=== PATIENT | female | born 1960 | race African-American/Black ===

== ENCOUNTER 2019-03-31 17:09 | Inpatient (IN) | payer MEDICAID ==
[~2019-03-31] VITALS: Ht 167.6 cm; Wt 77.1 kg
[~2019-03-31 17:09] MED LIST: ALBU0.5N2 IN; ALPR2TAB2 PO; CLON0.1T PO; FURO1TAB33 PO; HYDR-4833 PO; INSLANTI SC; IPRASOL39 NEB; METO-169 PO; MORP30TA PO; NIFE90TA30 PO; NITR0.2D3 TD; NITR0.4S29 SL; POT8T PO; PRE1T PO; QUET50TA PO; RANI-226 PO; SIMV40TA96 PO
[2019-03-31 17:59] LABS: Basophils # (auto) 0 uL; Eosinophils # (auto) 0.1 uL; Eosinophils % (auto) 2.5 % (0.0-7.0); Hematocrit 44.8 % (36.0-46.0); Lymphocytes # (auto) 1.6 uL; Lymphocytes % (auto) 32.9 % (10.0-50.0); Mean Corpuscular Hemoglobin 29.9 pg (28.0-32.0); Mean Corpuscular Hgb Conc. 33.6 g/dL (32.0-36.0); Mean Corpuscular Volume 88.9 fL (80.0-100.0); Monocytes # (auto) 0.4 uL; Monocytes % (auto) 7.9 % (0.0-12.0); Neutrophils # (auto) 2.7 uL; Neutrophils % (auto) 55.7 % (37.0-80.0); Nucleated Red Blood Cells % 0.1 %; Platelet Count (auto) 316 10^3/uL (140-450); Red Blood Cells 5.04 10^6/uL (4.0-5.20); Red Cell Distribution Width 13.4 % (11.8-14.3); White Blood Cell 4.8 10^3/uL (4.4-10.8)
[2019-03-31] MEDS ORDERED: MORPHINE SULFATE 4 MG/ML SYR/VIAL IV ONE ×2 (18:00→20:45)
[2019-03-31] MEDS ORDERED: ONDANSETRON HCL 4 MG/2 ML VIAL IV ONE ×2 (18:00→20:45)
[2019-03-31 18:17] LABS: Albumin 3.7 g/dL (3.4-5.0); Anion Gap 9 (5-15); Blood Urea Nitrogen 16 mg/dL (7-18); Calcium 9.3 mg/dL (8.5-10.1); Carbon Dioxide 23 mmol/L (21-32); Chloride 108 mmol/L (98-107); Glucose 87 mg/dL (74-106); Sodium 140 mmol/L (136-145)
[2019-03-31 18:22] LABS: Alanine Aminotransferase 30 U/L (13-56); Alkaline Phosphatase 79 U/L (45-117); Aspartate Aminotransferase 24 U/L (15-37); Bilirubin, Total 0.4 mg/dL (0.2-1.0); GFR African American 94 mL/min; GFR Non-African American 78 mL/min; Total Protein 7.8 g/dL (6.4-8.2)
[2019-03-31] MEDS ORDERED: cloNIDine HCL 0.1 MG TAB PO ONE (19:15)
[2019-03-31] MEDS ORDERED: GABAPENTIN 300 MG CAP PO ONE (20:45)
[2019-03-31] MEDS ORDERED: ONDANSETRON HCL 4 MG/2 ML VIAL IV PRN ×2 (21:45)
[2019-03-31] MEDS ORDERED: ALBUTEROL SULF 2.5 MG/0.5ML(0.5%) NEB SOLN NEB ONE (21:45)
[2019-03-31] MEDS ORDERED: PROMETHAZINE HCL 25 MG/ML 1ML IV ONE (21:45)
[2019-03-31] MEDS ORDERED: IPRATROPIUM BROM 0.5 MG/2.5ML INH SOL NEB ONE (21:45)
[2019-03-31] MEDS ORDERED: MORPHINE SULF INJ 2 MG/ML SYRINGE 1ML IV PRN (21:45)
[2019-03-31] MEDS ORDERED: NITROGLYCERIN 0.4 MG SL TAB SL PRN (21:45)
[2019-03-31] MEDS ORDERED: ACETAMINOPHEN 500 MG TAB PO PRN (21:45)
[2019-03-31] MEDS ORDERED: TEMAZEPAM 15 MG CAP PO PRN (22:00)
[2019-03-31] MEDS ORDERED: methylPREDNISolone SOD SUCC 125 MG/2 ML VL IV ONE (22:00)
[2019-03-31] MEDS ORDERED: cloNIDine HCL 0.1 MG TAB PO PRN (22:00)
[2019-03-31] MEDS ORDERED: LORazepam 0.5 MG TAB PO PRN (22:00)
[2019-03-31] MEDS: QUEtiapine FUMARATE 100 MG TAB PO SCH (22:28)
[2019-03-31] MEDS: ATORVASTATIN 20 MG TAB PO SCH (22:28)
--- NOTE | 2019-03-31 23:05 | NUR ---
Telemetry admit from ER [facility] admitted to Telemetry unit after SBAR received from [facility]. Patient oriented by MCKAYLA ROMERO, primary RN, to nurse call light and refused to listen to further instruction stating she had been here before. Bed in low position and locked Patient now on continuous telemetry monitoring, tele box #6 and telemetry reading on arrival to unit is sinus arrhythmia in 60s. Patient placed on bedside oxygen at 2 lpm per n/c, weighed by bedscale and encouraged to call if she needs something. 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 Impulsive in moving from stretcher to bed upon arrival; both software integration developer from ER and this RN cautioning her re. safety with movements. Nurse call light to pt's right side. Pt removes O2 at will. Pt asking RN if her phone is in here purse then will not allow RN to look within her purse. pt repeatedly asking about her phone and if she can eat. This RN repeatedly told pt ER personnel found phone and will bring it; also told she has had emesis and has DM so po will be limited at first. Pt insists her last meal was greater than 24 hours prev. Provided with sandwich and juice after this RN noted pt's serum gluc in ER was 87. Pt lieing flat of her back eating sandwich watching TV.
[2019-03-31 23:10] VITALS: BP 151/68
[2019-03-31 23:44] VITALS: BP 151/68
[2019-04-01] VITALS (7 sets, daily range): BP systolic 96–151; BP diastolic 67–80
[2019-04-01] MEDS: ALBUTEROL SULF 2.5 MG/0.5ML(0.5%) NEB SOLN NEB SCH ×4 (00:30→18:37)
[2019-04-01] MEDS: IPRATROPIUM BROM 0.5 MG/2.5ML INH SOL NEB SCH ×4 (00:30→18:37)
[2019-04-01 06:29] LABS: Basophils # (auto) 0 uL; Basophils % (auto) 0.2 % (0.0-2.0); Eosinophils # (auto) 0 uL; Eosinophils % (auto) 0.1 % (0.0-7.0); Hematocrit 43.1 % (36.0-46.0); Hemoglobin 14.4 g/dL (12.2-16.2); Lymphocytes # (auto) 0.5 uL; Lymphocytes % (auto) 10.7 % (10.0-50.0); Mean Corpuscular Hemoglobin 29.8 pg (28.0-32.0); Mean Corpuscular Hgb Conc. 33.4 g/dL (32.0-36.0); Mean Corpuscular Volume 89.2 fL (80.0-100.0); Monocytes # (auto) 0.1 uL; Monocytes % (auto) 1.5 % (0.0-12.0); Neutrophils % (auto) 87.5 % (37.0-80.0); Nucleated Red Blood Cells % 0.1 %; Platelet Count (auto) 279 10^3/uL (140-450); Red Blood Cells 4.83 10^6/uL (4.0-5.20); Red Cell Distribution Width 13.5 % (11.8-14.3); White Blood Cell 4.6 10^3/uL (4.4-10.8)
[2019-04-01 06:43] LABS: Calcium 9.2 mg/dL (8.5-10.1); Potassium 4.5 mmol/L (3.5-5.1)
[2019-04-01 06:45] LABS: BUN/Creatinine Ratio 21.9
--- NOTE | 2019-04-01 08:00 | NUR ---
Opening Shift Note Assumed care of patient, awake and alert. No S/S of distress/SOB 6/10 back and abdominal pain. Instructed on POC and to call for assist PRN, will continue to monitor for changes Q1hr and PRN.
[2019-04-01] MEDS ORDERED: ADENOSINE 62 MG in GIVE UN-DILUTED 0 ML IV STA (08:11)
[2019-04-01] MEDS ORDERED: PANTOPRAZOLE 40 MG TAB PO SCH (10:00)
[2019-04-01] MEDS: METOPROLOL SUCCINATE XL 50 MG TAB PO SCH (10:05)
[2019-04-01] MEDS: HYDROcodone-ACET 5/325MG TAB PO PRN ×3 (10:07→22:27)
[2019-04-01] MEDS: ASPirin-EC 81 mg tab PO SCH (10:07)
--- NOTE | 2019-04-01 10:30 | NUR ---
Hospitalist rounds Dr. Rivers at bedside, patient was advised. Patient complained of abdominal pain on and off and requested if it will be evaluated. Dr. Rivers spoke GI-Dr. Escobedo and recommended EGD for tomorrow. Patient made aware. Will placed on NPO after midnight tonight.
[2019-04-01 15:55] LABS: Cholesterol 225 mg/dL (< 200); Triglycerides 83 mg/dL (< 150)
[2019-04-01 15:57] LABS: HDL Cholesterol 78 mg/dL (40-59); LDL Cholesterol 137 mg/dL (< 100)
[2019-04-01] MEDS: SODIUM CHLORIDE 0.9% 1,000 ML IV SCH (18:04)
--- NOTE | 2019-04-01 18:30 | NUR ---
IV removal Both IV on right forearm and left wrist infiltrated. IV DC'd with clean sterile technique, catheter fully intact. Pressure dressing applied to site. Patient tolerated well.
[2019-04-01 18:55] LABS: INR < 0.93 (0.9-1.15); Partial Thromboplastin Time 26.6 sec (23.64-32.05)
--- NOTE | 2019-04-01 19:00 | NUR ---
Gave reports to shift superintendent caustic cresylate RN, patient requested for IV reinsertion later.
--- NOTE | 2019-04-01 19:52 | NUR ---
RECEIVED PATIENT FROM DAY SHIFT RN. PATIENT RESTING IN BED. NO S/S OF DISTRESS NOTED. C/O PAIN ON THE RIGHT SHOULDER @ 7/10 AFTER PAIN MEDICATION GIVEN EARLIER. REINFORCED PAIN MANAGEMENT SCHEDULE. WILL COME BACK FOR PAIN MEDICATION LATER WHEN THE TIME IS DUE AND PER PATIENT REQUESTS. HEAT PACK APPLIED ON THE SITE. REINFORCED PATIENT NPO AFTER MIDNIGHT FOR PROCEDURE TOMORROW. PATIENT VERBALIZED UNDERSTANDING. POC INSTRUCTED AND ENCOURAGED PATIENT TO CALL FOR [employer] SALES CONSULTANT IF NEEDED. BED IN LOWEST POSITION WITH SIDE RAILS UP X 2. CALL WHITMAN WITHIN REACH. CONTINUE TO MONITOR FOR CHANGES Q1H AND PRN.
--- NOTE | 2019-04-01 20:34 | NUR ---
IV insertion IV access obtained, via clean sterile technique by inserting [22] gauge catheter at [LFA] after [1] attempt(s). IV secured properly. No trauma to site. Patient tolerated well. NOTE: []
[2019-04-01] MEDS: QUEtiapine FUMARATE 100 MG TAB PO SCH (22:00)
[2019-04-01] MEDS: ATORVASTATIN 20 MG TAB PO SCH (22:25)
--- NOTE | 2019-04-01 22:25 | NUR ---
MEDICATED PATIENT FOR PAIN. CONTINUE TO MONITOR.
[2019-04-01] MEDS: PANTOPRAZOLE 40 MG TAB PO SCH (22:26)
[2019-04-02] VITALS (7 sets, daily range): BP systolic 119–162; BP diastolic 62–95
[2019-04-02] MEDS: ALBUTEROL SULF 2.5 MG/0.5ML(0.5%) NEB SOLN NEB SCH ×4 (00:36→18:19)
[2019-04-02] MEDS: IPRATROPIUM BROM 0.5 MG/2.5ML INH SOL NEB SCH ×4 (00:36→18:19)
--- NOTE | 2019-04-02 00:42 | NUR ---
REINFORCED NPO FROM NOW ON. FOOD AND WATER REMOVED FROM BEDSIDE. CONTINUE TO MONITOR.
[2019-04-02] MEDS: HYDROcodone-ACET 5/325MG TAB PO PRN ×4 (04:03→20:40)
--- NOTE | 2019-04-02 04:03 | NUR ---
MEDICATED PATIENT FOR PAIN. CONTINUE TO MONITOR.
--- NOTE | 2019-04-02 06:43 | NUR ---
RT PAGED FOR BREATHING TREATMENT.
[2019-04-02] MEDS: SODIUM CHLORIDE 0.9% 1,000 ML IV SCH ×2 (06:44→17:22)
--- NOTE | 2019-04-02 06:44 | NUR ---
PATIENT VERBALIZED UNDERSTANDING FOR NPO NOW. CONTINUE CARE.
[2019-04-02] MEDS: PANTOPRAZOLE 40 MG TAB PO SCH ×2 (09:48→21:43)
[2019-04-02] MEDS: METOPROLOL SUCCINATE XL 50 MG TAB PO SCH (09:48)
[2019-04-02] MEDS: ASPirin-EC 81 mg tab PO SCH (10:00)
[2019-04-02] MEDS ORDERED: SODIUM CHLORIDE LOCK 10 ML ONE (12:09)
[2019-04-02] MEDS ORDERED: FLUMAZENIL 0.1 MG/ML INJ 10ML MDV IV ONE (12:09)
[2019-04-02] MEDS ORDERED: NALOXONE HCL 0.4 MG/ML VIAL ONE (12:09)
[2019-04-02] MEDS ORDERED: diphenhdrAMINE HCL 50 MG/1 ML VL ONE (12:10)
--- NOTE | 2019-04-02 12:31 | NUR ---
Opening Shift Note Assumed care of patient, awake and alert. No S/S of distress/SOB or pain. For patient safety the bed is locked in the lowest position with 2 side rails up, and call light is with in reach. Instructed on POC and to call for assist PRN, will continue to monitor for any changes in condition. Addendum: 04/02/19 at 1243 by MARIA ELENA BARTLETT RN RN Assumed care of patient at 0730, please disregard noted time of 1241
[2019-04-02] MEDS: MIDAZOLAM HCL 5 MG/ML-1ML VIAL ONE ×2 (12:36→12:40)
[2019-04-02] MEDS: fentaNYL CITRATE 100 MCG/2 ML VL ONE ×2 (12:36→12:40)
[2019-04-02] MEDS ORDERED: LIDOCAINE VISCOUS 2% 15ML UD ONE (12:38)
[2019-04-02] MEDS: SUCRALFATE 1 GM/10 ML ORAL SUSP PO SCH ×2 (17:22→21:42)
--- NOTE | 2019-04-02 19:30 | NUR ---
Assumed care of patient. Alert and oriented x4. complaining of pain 01/25 "all over" will medicate per orders.Skin clear. [place] and juice given per request. Unhooks self from IV. No SOB/distress noted. Ambulates to bathroom on her own. Call light within reach
[2019-04-02] MEDS: ATORVASTATIN 20 MG TAB PO SCH (21:43)
[2019-04-02] MEDS: QUEtiapine FUMARATE 100 MG TAB PO SCH (21:43)
--- NOTE | 2019-04-02 22:00 | NUR ---
Refused seraquel. States "I dont like it" Atantione and norco given per pt request. Watching TV in bed. Using call light often constantly wants juice and snacks. Call light within reach
[2019-04-03] MEDS: ALBUTEROL SULF 2.5 MG/0.5ML(0.5%) NEB SOLN NEB SCH ×3 (00:14→11:09)
[2019-04-03] MEDS: IPRATROPIUM BROM 0.5 MG/2.5ML INH SOL NEB SCH ×3 (00:14→11:09)
[2019-04-03 04:50] VITALS: BP 139/92
[2019-04-03] MEDS: SODIUM CHLORIDE 0.9% 1,000 ML IV SCH (06:06)
[2019-04-03] MEDS: HYDROcodone-ACET 5/325MG TAB PO PRN ×2 (06:07→10:19)
[2019-04-03] MEDS: SUCRALFATE 1 GM/10 ML ORAL SUSP PO SCH ×2 (07:17→11:30)
--- NOTE | 2019-04-03 07:30 | NUR ---
Opening Shift Note Assumed care of patient, awake and alert. No S/S of distress/SOB or pain. For safety the bed is locked and in the lowest position with 2 side rails up. Instructed on POC and to call for assist PRN, will continue to monitor for changes.
[2019-04-03 08:00] VITALS: BP 134/64
[2019-04-03 09:00] VITALS: BP 134/64
--- NOTE | 2019-04-03 09:50 | NUR ---
DOCTOR CASTRO AT BEDSIDE. ORDERS RECEIVED, WILL PLACE AND CARRY OUT.
[2019-04-03] MEDS: PANTOPRAZOLE 40 MG TAB PO SCH (10:19)
[2019-04-03] MEDS: METOPROLOL SUCCINATE XL 50 MG TAB PO SCH (10:22)
[2019-04-03] MEDS: ASPirin-EC 81 mg tab PO SCH (10:22)
[2019-04-03] MEDS ORDERED: SUCR1SUS10 PO (11:13)
[2019-04-03] MEDS ORDERED: PANT40TA2 PO (11:13)
[2019-04-03 13:00] VITALS: BP 152/98
--- NOTE | 2019-04-03 13:33 | NUR ---
SPOKE WITH DOCTOR KEITH, PRESCRIPTIONS FOR DISCHARGE OBTAINED, WILL CALL INTO PATIENT'S PREFERRED PHARMACY.
[2019-04-03 14:01] VITALS: BP 134/64
--- NOTE | 2019-04-03 14:08 | NUR ---
PRESCRIPTIONS CALLED INTO [facility] PER PATIENT'S REQUEST.
--- NOTE | 2019-04-03 14:43 | NUR ---
Discharge instructions given as ordered. Encourage to follow up with PMD as instructed. All questions and concerns addressed. Patient verbalized understanding. Medication reconciliation form completed and copy given to patient. IV removed with catheter intact, pressure dressing applied Telemetry unit returned to ICU. Patient taken to vehicle via wheelchair with all personal belongings, accompanied by staff and family member. No distress noted at time of departure.
== END 2019-04-03 14:45 | disposition home or self-care (01) | DRG 241 ==
LOC: EDBD 17:09 → ER 17:09 → TELE 17:10 → TELE-EAST 23:14
PROVIDERS: ADMIT Nurse Practitioner Family; ATTEND Internal Medicine
PROC: 0D758ZZ Dilation of Esophagus, Via Natural or Artificial Opening Endoscopic (ICD-10-PCS; 2019-04-02)
PROC: 0DB68ZX Excision of Stomach, Via Natural or Artificial Opening Endoscopic, Diagnostic (ICD-10-PCS; principal; 2019-04-02 12:33)
DX: K29.70 Gastritis, unspecified, without bleeding (principal); I24.9 Acute ischemic heart disease, unspecified; I11.0 Hypertensive heart disease with heart failure; I50.9 Heart failure, unspecified; K21.0 Gastro-esophageal reflux disease with esophagitis; K44.9 Diaphragmatic hernia without obstruction or gangrene; E11.9 Type 2 diabetes mellitus without complications; E78.5 Hyperlipidemia, unspecified; G89.4 Chronic pain syndrome; I45.10 Unspecified right bundle-branch block; J44.9 Chronic obstructive pulmonary disease, unspecified; F41.9 Anxiety disorder, unspecified; I25.10 Atherosclerotic heart disease of native coronary artery without angina pectoris; R13.10 Dysphagia, unspecified; Z79.4 Long term (current) use of insulin; Z79.899 Other long term (current) drug therapy; Z82.3 Family history of stroke; I25.2 Old myocardial infarction; Z86.73 Personal history of transient ischemic attack (TIA), and cerebral infarction without residual deficits; Z82.49 Family history of ischemic heart disease and other diseases of the circulatory system; Z87.19 Personal history of other diseases of the digestive system; Z83.3 Family history of diabetes mellitus; Z87.891 Personal history of nicotine dependence; Z90.710 Acquired absence of both cervix and uterus
CPT/HCPCS: 36415; 43239; 70360; 71045; 78452; 80048; 80053; 80061; 83036; 83735; 83880; 84439; 84443; 84484; 85025; 85610; 85730; 93005; 93017; 94640; 94761; 96374; 96375; 96376; G0378; J0153; J2250; J2405

== ENCOUNTER 2020-01-22 01:54 | Emergency (ER) | payer MEDICAID ==
[~2020-01-22] VITALS: Ht 167.6 cm; Wt 71.7 kg
[~2020-01-22 01:54] MED LIST changes: -ALPR2TAB2 PO; -NIFE90TA30 PO; +NIFE90TA49 PO; +PANT40TA2 PO; -RANI-226 PO; +SUCR1SUS10 PO
[2020-01-22] MEDS ORDERED: IPRATROPIUM BROM 0.5 MG/2.5ML INH SOL NEB ONE ×2 (02:15→03:00)
[2020-01-22] MEDS ORDERED: ALBUTEROL SULF 2.5 MG/0.5ML(0.5%) NEB SOLN NEB ONE ×2 (02:15→03:00)
[2020-01-22 02:56] VITALS: BP 115/73
[2020-01-22] MEDS ORDERED: SODIUM CHLORIDE 0.9% 500 ML IV ONE (03:15)
[2020-01-22] MEDS ORDERED: methylPREDNISolone SOD SUCC 125 MG/2 ML VL IV ONE (03:15)
[2020-01-22 04:09] LABS: Basophils # (auto) 0.1 10 ^3/uL (0-0.2); Basophils % (auto) 1.1 % (0.0-2.0); Eosinophils # (auto) 0.2 10 ^3/uL (0-0.8); Eosinophils % (auto) 2.4 % (0.0-7.0); Hematocrit 48.5 % (36.0-46.0); Hemoglobin 15.6 g/dL (12.2-16.2); Lymphocytes # (auto) 1.4 10 ^3/uL (0.4-5.4); Lymphocytes % (auto) 16.6 % (10.0-50.0); Mean Corpuscular Hemoglobin 29.1 pg (28.0-32.0); Mean Corpuscular Hgb Conc. 32.2 g/dL (32.0-36.0); Mean Corpuscular Volume 90.2 fL (80.0-100.0); Monocytes # (auto) 0.6 10 ^3/uL (0-1.3); Monocytes % (auto) 6.4 % (0.0-12.0); Neutrophils # (auto) 6.4 10 ^3/uL (1.6-8.6); Neutrophils % (auto) 73.5 % (37.0-80.0); Nucleated Red Blood Cells % 0.1 %; Platelet Count (auto) 377 10^3/uL (140-450); Red Blood Cells 5.38 10^6/uL (4.0-5.20); Red Cell Distribution Width 13.3 % (11.8-14.3); White Blood Cell 8.7 10^3/uL (4.4-10.8)
[2020-01-22 04:26] LABS: Alanine Aminotransferase 32 U/L (13-56); Anion Gap 7 (5-15); Aspartate Aminotransferase 21 U/L (15-37); BUN/Creatinine Ratio 16.9; Blood Urea Nitrogen 20 mg/dL (7-18); Calcium 9.4 mg/dL (8.5-10.1); Carbon Dioxide 25 mmol/L (21-32); Chloride 109 mmol/L (98-107); GFR African American 60 mL/min; GFR Non-African American 50 mL/min; Glucose 103 mg/dL (74-106); INR 0.97 (0.9-1.15); Magnesium 2.7 mg/dL (1.6-2.6); Partial Thromboplastin Time 28.6 sec (23.0-31.2); Potassium 4.6 mmol/L (3.5-5.1); Sodium 141 mmol/L (136-145)
[2020-01-22] MEDS ORDERED: MAGNESIUM SULFATE 1GM/100ML 100 ML IV ONE (04:30)
[2020-01-22] MEDS ORDERED: LORazepam 2MG/ML-1ML VIAL IV ONE (04:30)
[2020-01-22 04:31] LABS: Alkaline Phosphatase 79 U/L (45-117); Bilirubin, Total 0.4 mg/dL (0.2-1.0); Total Protein 8.1 g/dL (6.4-8.2)
[2020-01-22] MEDS ORDERED: MAGNESIUM SULFATE 1GM/100ML 100 ML IV SCH (05:00)
== END 2020-01-22 05:50 | disposition left against medical advice (07) ==
LOC: EDBD 01:54 → EDSEX 01:54 → ER 01:56
DX: J44.1 Chronic obstructive pulmonary disease with (acute) exacerbation (principal); I11.0 Hypertensive heart disease with heart failure; I50.9 Heart failure, unspecified; E11.9 Type 2 diabetes mellitus without complications; E78.5 Hyperlipidemia, unspecified; Z86.73 Personal history of transient ischemic attack (TIA), and cerebral infarction without residual deficits; Z90.710 Acquired absence of both cervix and uterus
CPT/HCPCS: 36415; 71045; 80053; 83735; 83880; 84443; 84484; 85025; 85379; 85610; 85730; 93005; 94640; 96361; 96365; 96375; 99291; J2060; J2930; J3475; J7644

== ENCOUNTER 2020-02-03 12:05 | Inpatient (IN) | payer MEDICAID ==
[~2020-02-03] VITALS: Ht 162.6 cm; Wt 80.4 kg
[2020-02-03] MEDS: guaiFENesin-DM 100/10mg/5ml SYR PO ONE ×2 (00:50→23:30)
[2020-02-03] MEDS ORDERED: ALBUTEROL SULF 2.5 MG/0.5ML(0.5%) NEB SOLN ONE (12:11)
[2020-02-03] MEDS ORDERED: methylPREDNISolone SOD SUCC 125 MG/2 ML VL IV ONE (12:15)
[2020-02-03] MEDS ORDERED: ALBUTEROL SULF 2.5 MG/0.5ML(0.5%) NEB SOLN HHN ONE (12:15)
[2020-02-03] MEDS ORDERED: IPRATROPIUM BROM 0.5 MG/2.5ML INH SOL HHN ONE (12:15)
[2020-02-03 12:54] LABS: Basophils # (auto) 0.1 10 ^3/uL (0-0.2); Basophils % (auto) 1.1 % (0.0-2.0); Eosinophils # (auto) 0.5 10 ^3/uL (0-0.8); Eosinophils % (auto) 9.3 % (0.0-7.0); Hemoglobin 13.9 g/dL (12.2-16.2); Lymphocytes % (auto) 17.7 % (10.0-50.0); Mean Corpuscular Hemoglobin 29.5 pg (28.0-32.0); Mean Corpuscular Hgb Conc. 33.1 g/dL (32.0-36.0); Mean Corpuscular Volume 89.3 fL (80.0-100.0); Monocytes # (auto) 0.4 10 ^3/uL (0-1.3); Monocytes % (auto) 7.5 % (0.0-12.0); Neutrophils # (auto) 3.5 10 ^3/uL (1.6-8.6); Neutrophils % (auto) 64.4 % (37.0-80.0); Nucleated Red Blood Cells % 0.1 %; Platelet Count (auto) 268 10^3/uL (140-450); Red Blood Cells 4.71 10^6/uL (4.0-5.20); Red Cell Distribution Width 12.9 % (11.8-14.3); White Blood Cell 5.4 10^3/uL (4.4-10.8)
[2020-02-03 13:14] LABS: Albumin 3.7 g/dL (3.4-5.0); Anion Gap 6 (5-15); Blood Urea Nitrogen 11 mg/dL (7-18); Calcium 8.8 mg/dL (8.5-10.1); Carbon Dioxide 25 mmol/L (21-32); Chloride 112 mmol/L (98-107); Glucose 108 mg/dL (74-106); Potassium 3.3 mmol/L (3.5-5.1); Sodium 143 mmol/L (136-145)
[2020-02-03 13:19] LABS: Alanine Aminotransferase 28 U/L (13-56); Alkaline Phosphatase 74 U/L (45-117); Aspartate Aminotransferase 15 U/L (15-37); BUN/Creatinine Ratio 11.8; Bilirubin, Total 0.4 mg/dL (0.2-1.0); GFR African American 79 mL/min; GFR Non-African American 65 mL/min; Total Protein 7.3 g/dL (6.4-8.2)
[2020-02-03] MEDS ORDERED: AZITHROMYCIN 500MG/ 250ML 250 ML IV ONE (14:00)
[2020-02-03] MEDS ORDERED: SODIUM CHLORIDE 0.9% 1,000 ML IV SCH (14:05)
[2020-02-03] MEDS ORDERED: NITROGLYCERIN 0.4 MG SL TAB SL PRN (14:15)
[2020-02-03] MEDS ORDERED: ACETAMINOPHEN 500 MG TAB PO PRN (14:15)
[2020-02-03] MEDS ORDERED: MORPHINE SULF INJ 2 MG/ML SYRINGE 1ML IV PRN (14:15)
[2020-02-03] MEDS ORDERED: POTASSIUM CHL 20MEQ/100ML 100 ML IV ONE (14:15)
[2020-02-03 14:28] LABS: CRP High Sensitivity 0.38 mg/dL (< 0.3)
[2020-02-03] MEDS ORDERED: ALPRAZolam 0.5 MG TAB PO ONE (16:15)
[2020-02-03] MEDS ORDERED: HYDROcodone-ACET 5/325MG TAB PO ONE (16:15)
[2020-02-03] MEDS: DOXYCYCLINE 100 MG TAB/CAP PO SCH (21:17)
[2020-02-03] MEDS: BUDESONIDE (INHALATION) 180 MCG IH IN SCH (23:02)
[2020-02-03] MEDS: ALBUTEROL SULF HFA 90MCG INH 200DOSE IN SCH (23:02)
[2020-02-04] VITALS (8 sets, daily range): BP systolic 139–189; BP diastolic 94–116
[2020-02-04] MEDS: LABETALOL HCL 5 MG/ML 4ML SYRINGE IV PRN ×2 (01:23→05:46)
--- NOTE | 2020-02-04 01:30 | NUR ---
MS admit from ER [facility] admitted to [facility] after SBAR received. Patient oriented to VIVI GAMBOA, GERALD primary RN, room 238. Patient weighed by bedscale and encouraged to call if they need something. All questions and concerns addressed, patient verbalized understanding. Bed locked, in lowest position, call light within reach, side rails up x2. Will continue to monitor Q1hr and PRN.
--- NOTE | 2020-02-04 02:00 | NUR ---
Hospitalist paged Pt is not on tele monitoring
--- NOTE | 2020-02-04 03:00 | NUR ---
Call back from hospitalist New orders received to place pt on tele monitoring
[2020-02-04 05:25] LABS: Basophils # (auto) 0 10 ^3/uL (0-0.2); Basophils % (auto) 0.3 % (0.0-2.0); Eosinophils # (auto) 0 10 ^3/uL (0-0.8); Eosinophils % (auto) 0.1 % (0.0-7.0); Hematocrit 37.3 % (36.0-46.0); Hemoglobin 12.1 g/dL (12.2-16.2); Lymphocytes # (auto) 0.9 10 ^3/uL (0.4-5.4); Lymphocytes % (auto) 7.8 % (10.0-50.0); Mean Corpuscular Hemoglobin 29.3 pg (28.0-32.0); Mean Corpuscular Hgb Conc. 32.5 g/dL (32.0-36.0); Mean Corpuscular Volume 90.1 fL (80.0-100.0); Monocytes # (auto) 0.9 10 ^3/uL (0-1.3); Neutrophils # (auto) 10.3 10 ^3/uL (1.6-8.6); Neutrophils % (auto) 84.8 % (37.0-80.0); Nucleated Red Blood Cells % 0.1 %; Platelet Count (auto) 233 10^3/uL (140-450); Red Blood Cells 4.14 10^6/uL (4.0-5.20); Red Cell Distribution Width 13.2 % (11.8-14.3); White Blood Cell 12.1 10^3/uL (4.4-10.8)
[2020-02-04 05:45] LABS: Albumin 3.1 g/dL (3.4-5.0); Calcium 8.4 mg/dL (8.5-10.1); Potassium 4.4 mmol/L (3.5-5.1)
[2020-02-04 05:51] LABS: BUN/Creatinine Ratio 15.5; Bilirubin, Total 0.2 mg/dL (0.2-1.0); Total Protein 6.3 g/dL (6.4-8.2)
--- NOTE | 2020-02-04 06:00 | NUR ---
Hospitalist paged Pt requesting something for her anxiety
[2020-02-04] MEDS: ALBUTEROL SULF HFA 90MCG INH 200DOSE IN SCH ×3 (06:36→21:45)
[2020-02-04] MEDS: BUDESONIDE (INHALATION) 180 MCG IH IN SCH ×2 (06:36→21:45)
--- NOTE | 2020-02-04 06:48 | NUR ---
Call back from hospitalist New orders received
[2020-02-04] MEDS ORDERED: LORazepam 0.5 MG TAB PO ONE (07:00)
--- NOTE | 2020-02-04 07:30 | NUR ---
Opening Shift Note Assumed care of patient, patient asleep,respirations relaxed and even. No S/S of distress/SOB or pain. Instructed on POC and to callfor assist PRN, will continue to monitor for changes Q1hr and PRN.
[2020-02-04] MEDS: PANTOPRAZOLE 40 MG/10 ML VIAL INJ IV SCH (09:45)
[2020-02-04] MEDS: ZINC SULFATE 220mg CAP or TAB PO SCH (09:46)
[2020-02-04] MEDS: DOXYCYCLINE 100 MG TAB/CAP PO SCH (09:50)
[2020-02-04] MEDS: ENOXAPARIN SOD 40 MG/0.4 ML SYRINGE SC SCH (09:51)
[2020-02-04] MEDS: CHOLECALCIFEROL (VITD3) 2,000 UNIT CAP PO SCH (09:51)
[2020-02-04] MEDS: ASCORBIC ACID 1,000 MG TAB PO SCH (09:51)
[2020-02-04] MEDS ORDERED: levoFLOXacin 500MG 100 ML IV SCH (10:00)
--- NOTE | 2020-02-04 12:30 | NUR ---
IV removal infiltrated IV DC'd with clean sterile technique, catheter fully intact. Pressure dressing applied to site. Patient tolerated well. NOTE:
--- NOTE | 2020-02-04 16:30 | NUR ---
dr rubio bedside new orders to be carried out.
--- NOTE | 2020-02-04 18:18 | NUR ---
IV insertion IV access obtained, via clean sterile technique by inserting 22 gauge catheter at left upper arm after 2 attempt(s). IV secured properly. No trauma to site. Patient tolerated well.
[2020-02-04] MEDS: HYDROcodone-ACET 5/325MG TAB PO PRN (18:35)
--- NOTE | 2020-02-04 19:20 | NUR ---
Opening Shift Note Assumed care of patient. Patient is awake, alert, and oriented X 4. No S/S of respiratory distress and pain noted or reported. Patient is on RA with O2 saturation 96 %. Bed in lowest position, brakes locked, side rails up x 2, call light within reach. POC discussed. All questions answered. Patient verbalized understanding. Patient instructed to call for assistance as needed. Will continue to monitor for changes Q1hr and PRN.
--- NOTE | 2020-02-04 19:26 | NUR ---
ENDORSED CARE TO NIGHT RN
[2020-02-04] MEDS: methylPREDNISolone SOD SUCC 125 MG/2 ML VL IV SCH (21:40)
[2020-02-04] MEDS: ZOLPIDEM TARTRATE 5 MG TAB PO PRN (21:40)
--- NOTE | 2020-02-04 22:55 | NUR ---
Patient refused MRSA swab.
[2020-02-05 04:55] VITALS: BP 172/119
[2020-02-05] MEDS: methylPREDNISolone SOD SUCC 125 MG/2 ML VL IV SCH ×3 (06:11→21:06)
[2020-02-05] MEDS: ALBUTEROL SULF HFA 90MCG INH 200DOSE IN SCH ×3 (06:42→21:28)
[2020-02-05] MEDS: BUDESONIDE (INHALATION) 180 MCG IH IN SCH ×2 (06:42→21:28)
[2020-02-05 09:00] VITALS: BP 189/127
[2020-02-05] MEDS ORDERED: levoFLOXacin 500MG 100 ML IV SCH (10:00)
[2020-02-05] MEDS: ZINC SULFATE 220mg CAP or TAB PO SCH (10:45)
[2020-02-05] MEDS: CHOLECALCIFEROL (VITD3) 2,000 UNIT CAP PO SCH (10:45)
[2020-02-05] MEDS: ASCORBIC ACID 1,000 MG TAB PO SCH (10:45)
[2020-02-05] MEDS: PANTOPRAZOLE 40 MG/10 ML VIAL INJ IV SCH (10:45)
[2020-02-05] MEDS: ENOXAPARIN SOD 40 MG/0.4 ML SYRINGE SC SCH (10:46)
--- NOTE | 2020-02-05 12:30 | NUR ---
IV removal INFILTRATED IV DC'd with clean sterile technique, catheter fully intact. Pressure dressing applied to site. Patient tolerated well. NOTE:
[2020-02-05 13:18] VITALS: BP 183/116
[2020-02-05] MEDS: LORazepam 0.5 MG TAB PO PRN (16:00)
[2020-02-05 16:40] VITALS: BP 156/104
--- NOTE | 2020-02-05 17:30 | NUR ---
IV insertion IV access obtained, via clean sterile technique by inserting gauge catheter at after attempt(s). IV secured properly. No trauma to site. Patient tolerated well.
--- NOTE | 2020-02-05 19:26 | NUR ---
ENDORSED CARE TO NIGHT RN
--- NOTE | 2020-02-05 20:00 | NUR ---
Opening Shift Note Assumed care of patient, awake and alert x4. Patient denies pain or shortness of breath at this time. No sign/symptoms of distress noted or verbalized at this time. Instructed on plan of care and encouraged patient to call for assistance as needed, patient verbalized understanding. Bed is locked in lowest position, side rails x 2 are up, call light is within reach, and bed alarm is on.
[2020-02-05] MEDS: ZOLPIDEM TARTRATE 5 MG TAB PO PRN (21:07)
[2020-02-05] MEDS: HYDROcodone-ACET 5/325MG TAB PO PRN (21:51)
[2020-02-05 22:00] VITALS: BP 188/103
--- NOTE | 2020-02-05 22:30 | NUR ---
IV Insertion IV access obtained, via clean sterile technique by inserting 22 gauge catheter at left forearm after 3 attempts. IV secured properly. No trauma to site. Patient tolerated well.
--- NOTE | 2020-02-05 22:40 | NUR ---
IV Removal IV to right hand DC'd with clean sterile technique, catheter fully intact. Pressure dressing applied to site. Patient tolerated well. Addendum: 02/06/20 at 0152 by YAQUELIN FRY RN RN IV removed due to infiltration.
[2020-02-05] MEDS: LABETALOL HCL 5 MG/ML 4ML SYRINGE IV PRN (22:44)
--- NOTE | 2020-02-06 00:35 | NUR ---
Nausea/Cough Medicine Dr. Freedman made aware that patient is complaining of nausea and is requesting cough medication. Orders received and verified (see eMAR). Will carry out orders as received.
[2020-02-06] MEDS ORDERED: ONDANSETRON HCL 4 MG/2 ML VIAL IV PRN (00:45)
[2020-02-06] MEDS ORDERED: guaiFENesin-CODEINE Liq 5 ML UD PO PRN ×2 (00:45→01:30)
[2020-02-06 01:00] VITALS: BP 152/114
[2020-02-06 05:00] VITALS: BP 187/114
[2020-02-06] MEDS: LABETALOL HCL 5 MG/ML 4ML SYRINGE IV PRN ×3 (05:00→12:43)
[2020-02-06] MEDS: methylPREDNISolone SOD SUCC 125 MG/2 ML VL IV SCH ×2 (05:55→14:00)
[2020-02-06] MEDS: ALBUTEROL SULF HFA 90MCG INH 200DOSE IN SCH ×2 (06:19→13:55)
[2020-02-06] MEDS: BUDESONIDE (INHALATION) 180 MCG IH IN SCH (06:19)
--- NOTE | 2020-02-06 08:16 | NUR ---
OPENING SHIFT NOTE Assumed care of patient. PT is awake and a&ox4. No SOB or s/s of distress at this time. Instructed on plan of care and encouraged patient to call for assistance as needed, patient verbalized understanding. Bed is locked in lowest position, side rails x 2 are up, call light is within reach, and bed alarm is on.
[2020-02-06 09:00] VITALS: BP 170/112
[2020-02-06] MEDS ORDERED: levoFLOXacin 500 MG TAB PO SCH (10:00)
[2020-02-06] MEDS ORDERED: METOPROLOL SUCCINATE XL 50 MG TAB PO SCH (10:00)
[2020-02-06] MEDS ORDERED: cloNIDine HCL 0.1 MG TAB PO SCH (10:00)
[2020-02-06] MEDS: CHOLECALCIFEROL (VITD3) 2,000 UNIT CAP PO SCH (10:28)
[2020-02-06] MEDS: LORazepam 0.5 MG TAB PO PRN (10:28)
[2020-02-06] MEDS: HYDROcodone-ACET 5/325MG TAB PO PRN (10:28)
[2020-02-06] MEDS: ASCORBIC ACID 1,000 MG TAB PO SCH (10:29)
[2020-02-06] MEDS: ENOXAPARIN SOD 40 MG/0.4 ML SYRINGE SC SCH (10:29)
[2020-02-06] MEDS: ZINC SULFATE 220mg CAP or TAB PO SCH (10:29)
[2020-02-06] MEDS: PANTOPRAZOLE 40 MG/10 ML VIAL INJ IV SCH (10:30)
[2020-02-06 10:50] VITALS: BP 170/112
[2020-02-06] MEDS ORDERED: hydrALAZINE HCL 20 MG/ML VL IV PRN (11:30)
--- NOTE | 2020-02-06 12:31 | NUR ---
PT'S BP IS 174/114. NOTIFIED MD PHIPPS AND NOTIFIED HIM THAT ORDERED PRN MED IS NOT IN STOCK. MD PHIPPS INSTRUCTED TO PROCEED WITH DISCHARGE. CHARGE NURSE IS AWARE.
[2020-02-06 13:00] VITALS: BP 149/98
[2020-02-06] MEDS ORDERED: cloNIDine HCL 0.1 MG TAB PO PRN (14:00)
--- NOTE | 2020-02-06 14:24 | NUR ---
PT'S BP NOW 149/98. HR 71. WILL PROCEED WITH DC.
--- NOTE | 2020-02-06 14:53 | NUR ---
5 Addendum: 02/06/20 at 1453 by HARITHA SIMMONS RN ERROR
== END 2020-02-06 14:45 | disposition home or self-care (01) | DRG 137 ==
LOC: EDBD 12:05 → ER 12:05 → OVERFLOW 12:06 → EAST 02-04 00:40
PROVIDERS: ATTEND Internal Medicine
PROC: 5A09357 Assistance with Respiratory Ventilation, Less than 24 Consecutive Hours, Continuous Positive Airway Pressure (ICD-10-PCS; principal; 2020-02-03)
DX: U07.1 COVID-19 (principal); J12.89 Other viral pneumonia; J80 Acute respiratory distress syndrome; I11.0 Hypertensive heart disease with heart failure; I50.9 Heart failure, unspecified; J44.1 Chronic obstructive pulmonary disease with (acute) exacerbation; E11.9 Type 2 diabetes mellitus without complications; E78.5 Hyperlipidemia, unspecified; F41.9 Anxiety disorder, unspecified; I25.10 Atherosclerotic heart disease of native coronary artery without angina pectoris; F32.9 Major depressive disorder, single episode, unspecified; J44.0 Chronic obstructive pulmonary disease with (acute) lower respiratory infection; I25.2 Old myocardial infarction; Z79.899 Other long term (current) drug therapy; Z82.49 Family history of ischemic heart disease and other diseases of the circulatory system; Z83.3 Family history of diabetes mellitus; Z86.73 Personal history of transient ischemic attack (TIA), and cerebral infarction without residual deficits; Z90.710 Acquired absence of both cervix and uterus
CPT/HCPCS: 36415; 71045; 80053; 82728; 83036; 83605; 83615; 83735; 83880; 84484; 85025; 86141; 87040; 87081; 93005; 94640; 94660; C9113; G0378; J1956; J2405; J3480; J3490